=== PATIENT | female | born 1995 | race Two or more races ===

== ENCOUNTER 2018-07-22 03:39 | Emergency (ER) | payer OTHER ==
--- NOTE | 2018-07-22 04:11 | ED ---
GI/ HPI - HPI Summary HPI Summary: This patient is a 23 year old female presenting to [facility] with a chief complaint of vaginal bleeding post intercourse since 2 hours ago. She states the bleeding began during intercourse and has not stopped since. 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 Her LNMP ended 2 days ago. She reports a mild suprapubic pain that she describes as pressure. She rates the pain 3/10 in severity. - History of Current Complaint Chief Complaint: EDVaginalBleeding Time Seen by Provider: 07/22/18 03:58 Stated Complaint: IM BLEEDING SO MUCH AND I CANT CONTROL IT PER PT Hx Obtained From: Patient Onset/Duration: Started Hours Ago Timing: Constant Severity: Mild Current Severity: Mild Pain Intensity: 3 Location of Pain: Suprapubic Additional Signs & Symptoms: Positive: Vaginal Bleeding - Allergy/Home Medications Allergies/Adverse Reactions: Allergies Allergy/AdvReac Type Severity Reaction Status Date / Time kiwi Allergy Swelling Verified 07/22/18 03:54 Latex, Natural Rubber Allergy Facial Verified 07/22/18 03:54 Redness/Flushing passion fruit Allergy Swelling Verified 07/22/18 03:54 Home Medications: Home Medications NK [No Home Medications Reported] 07/22/18 [History Confirmed 07/22/18] PMH/Surg Hx/FS Hx/Imm Hx Endocrine/Hematology History: Denies: Hx Diabetes Cardiovascular History: Denies: Hx Coronary Artery Disease Infectious Disease History: No Infectious Disease History: Reports: Traveled Outside the [place] in Last 30 Days - Family History Known Family History: Negative: Diabetes - Social History Occupation: Student Lives: Dormitory/Roommates Review of Systems Negative: Fever Positive: Abdominal Pain - Suprapubic Positive: other - Vaginal bleeding All Other Systems Reviewed And Are Negative: Yes Physical Exam - Summary Physical Exam Summary: VITAL SIGNS: Reviewed. GENERAL: Patient is a well-developed and nourished FEMALE who is lying comfortable in the stretcher. Patient is not in any acute respiratory distress. HEAD AND FACE: No signs of trauma. No ecchymosis, hematomas or skull depressions. No sinus tenderness. EYES: PERRLA, EOMI x 2, No injected conjunctiva, no nystagmus. EARS: Hearing grossly intact. Ear canals and tympanic membranes are within normal limits. MOUTH: Oropharynx within normal limits. NECK: Supple, trachea is midline, no adenopathy, no JVD, no carotid bruit, no c- spine tenderness, neck with full ROM. CHEST: Symmetric, no tenderness at palpation LUNGS: Clear to auscultation bilaterally. No wheezing or crackles. CVS: Regular rate and rhythm, S1 and S2 present, no murmurs or gallops appreciated. ABDOMEN: Soft, non-tender. No signs of distention. No rebound no guarding, and no masses palpated. Bowel sounds are normal. EXTREMITIES: FROM in all major joints, no edema, no cyanosis or clubbing. NEURO: Alert and oriented x 3. No acute neurological deficits. Speech is normal and follows commands. SKIN: Dry and warm GIGU: Tear over the posterior vaginal wall. Packed vagina to stop bleeding. Brake Engineer Nicole present for examination. Triage Information Reviewed: Yes Vital Signs On Initial Exam: Initial Vitals Temp Pulse Resp BP Pulse Ox 97.6 F 84 16 136/80 96 07/22/18 03:52 07/22/18 03:52 07/22/18 03:52 07/22/18 03:52 07/22/18 03:52 Vital Signs Reviewed: Yes Diagnostics - Vital Signs Vital Signs Temp Pulse Resp BP Pulse Ox 07/22/18 03:52 97.6 F 84 16 136/80 96 - Laboratory Lab Statement: Any lab studies that have been ordered have been reviewed, and results considered in the medical decision making process. GIGU Course/Dx - Course Course Of Treatment: This patient is a 23 year old female presenting to [facility] with a chief complaint of vaginal bleeding post intercourse since 2 hours ago. 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 Dr. Leroy, OBGYN , was consulted and saw the patient in the ED and repacked the wound. The patient is feeling better and can go home. A plan for discharge was discussed with the patient and she was agreeable with this plan. - Diagnoses Provider Diagnoses: Vaginal bleeding - Physician Notifications Discussed Care Of Patient With: Laura Leroy Instructed by Provider To: Will See In ED Discharge - Sign-Out/Discharge Documenting (check all that apply): Patient Departure - Discharge Patient Received Moderate/Deep Sedation with Procedure: No - Discharge Plan Condition: Stable Disposition: HOME Forms: *School Release Referrals: Laura Leroy MD [Medical Doctor] - Additional Instructions: Return to ED with any new or worsening symptoms. Follow up with OBGYN on Monday. - Billing Disposition and Condition Condition: STABLE Disposition: Home - Attestation Statements Document Initiated by Meghan: Yes Documenting Scribe: Leo Gomes Provider For Whom Meghan is Documenting (Include Credential): Westley Preston MD Scribe Attestation: ILeo, scribed for Westley Preston MD on 07/22/18 at 2031. Scribe Documentation Reviewed: Yes Provider Attestation: The documentation as recorded by the Leo wilkes accurately reflects the service I personally performed and the decisions made by me, Westley Preston MD Status of Scribe Document: Viewed
[2018-07-22] MEDS ORDERED: NS 0.9% 1000 ML** 1,000 ML IV.FLUID IV ONE (04:51)
--- NOTE | 2018-07-22 06:36 | CONSULT ---
Consult Consult: CC: post-coital bleeding, suspect vaginal laceration HPI: pt had intercourse around 2:15 this am. It was with her usual partner and they used a condom. She says she started to feel a little pain and then suddenly started bleeding so they stopped. She was changing pads every 5min so she came to the ED. She says the pain was sort of sharp and crampy. Has never felt pain like this before. Denies it being particularly rough intercourse. Exam: Packing placed by ED doc about 2hrs earlier was removed with moderate amount of blood on it. The pt had very minimal bleeding while moving around after the packing was removed but she wanted a speculum exam to check it out. On exam no bright red blood was seen initially. Then several ~2cm clots were removed from the upper vagina and after removal of the second clot a 1-2cm laceration was noted which started bleeding again moderately. The vagina was then repacked. A: 23yo with vaginal laceration s/p intercourse, prefers to avoid surgical repair. P: Will leave packing in for 12hrs, then pt can remove later this evening. Can expect some dark clot and small amount of bright red bleeding. Will feel pressure from the packing until removed. Will f/u next monday or monday to see Dr. Leroy in the office. Call the office if any concerns before then.
[2018-07-22 07:03] VITALS: BP 102/58
== END 2018-07-22 07:02 | disposition home or self-care (01) ==
LOC: ED 03:39
DX: N93.0 Postcoital and contact bleeding (principal); Z91.040 Latex allergy status
CPT/HCPCS: 96360; 99283